=== PATIENT | female | born 1970 | race Caucasian/White ===

== ENCOUNTER 2017-03-11 18:40 | Observation (INO) | payer MEDICAID ==
[~2017-03-11] VITALS: Ht 162.6 cm; Wt 133.2 kg
--- NOTE | ~2017-03-11 | HP ---
PATIENT'S NAME: EMILIA SOLO [facility] AGE: 47 Y [address] ROOM: [place] [address] LOCATION: GPCU ADMIT DATE: 03/11/2017 History & Physical DISCHARGE DATE: FAMILY PHYSICIAN: PHYSICIAN, UNKNOWN ATTENDING PHYSICIAN: Lynda Mohamud DATE OF SERVICE: CHIEF COMPLAINT: Chest pain. HISTORY OF PRESENT ILLNESS: The patient is a 47-year-old female with past medical history most significant for long-standing insulin-dependent diabetes, morbid obesity, and hypertension. The patient was being evaluated at [place] in the course of the last 3-4 weeks for persistent chest pain. She has had a stress test, which was reported to me by the patient and significant other to have some sort of an "apical abnormality." She also had an echocardiogram which again as per the patient and accompanying significant other, demonstrated right-sided abnormality. The patient was scheduled for a cardiac catheterization in approximately 4 days, but continued to have chest pain and called Dr. Mohamud's office, who was supposed to do the catheterization on her. She was advised to go to the ER in [place]. A workup at [place] including cardiac enzymes and an EKG was unremarkable. A transfer to [facility] for further evaluation and cardiac catheterization was requested. At this point, the patient is resting comfortably in bed at [facility]. She still reports that she has this constant sharp left-sided chest pain associated with dyspnea. She does say that she feels better with supplemental oxygen though her saturations remained at 96%. She reports that she did not have any significant response to this chest pain with nitroglycerin. The chest at its worse gets to be a 6, but right now is less. She denies any nausea, vomiting, or syncope. REVIEW OF SYSTEMS: All systems have been reviewed and are negative aside from pertinent positives mentioned above. PAST MEDICAL HISTORY: 1. Depression./anxiety. 2. Insulin-dependent diabetes. 3. Morbid obesity. 4. Essential hypertension. PATIENT'S NAME: EMILIA SOLO [facility] AGE: 47 Y [address] ROOM: [place] [address] LOCATION: GPCU ADMIT DATE: 03/11/2017 History & Physical DISCHARGE DATE: FAMILY PHYSICIAN: PHYSICIAN, UNKNOWN ATTENDING PHYSICIAN: Lynda Mohamud 5. Diabetic neuropathy. 6. Has been tested for obstructive sleep apnea in the past, but does not carry the diagnosis. 7. Fatty liver. 8. Gastroparesis. 9. Spinal stenosis. 10. Chronic low back pain. 11. A "disorder of the thyroid.". FAMILY HISTORY: Significant for severe diabetes in her father and COPD in her mother. SOCIAL HISTORY: The patient denies any history of for ongoing toxic habits. CURRENT MEDICATIONS: 1. Trazodone. 2. Fluoxetine. 3. Meloxicam. 4. Omeprazole. 5. Losartan. 6. Levothyroxine. 7. Tramadol. 8. Lorazepam. 9. Seroquel. 10. Metoprolol 25 b.i.d. 11. Atorvastatin 20. 12. Invokana. 13. Metformin. 14. Aspirin. 15. Fluconazole. 16. Pregabalin. 17. Ibuprofen. 18. Nystatin. 19. Diclofenac. 20. Insulin detemir 40 units q.h.s. 21. NovoLog sliding scale. PHYSICAL EXAMINATION: VITAL SIGNS: Blood pressure 127/78, heart rate is in the 80s, respirations are 16, saturating 96% on room air, afebrile. GENERAL APPEARANCE: Morbidly obese, middle-aged female, slightly diaphoretic, but no acute distress. NEUROLOGIC: Nonfocal. EYES: Exam shows pupils are equal and reactive to light. PATIENT'S NAME: EMILIA SOLO [facility] AGE: 47 Y [address] ROOM: [place] [address] [facility] ADMIT DATE: 03/11/2017 History & Physical DISCHARGE DATE: FAMILY PHYSICIAN: PHYSICIAN, UNKNOWN ATTENDING PHYSICIAN: Lynda Mohamud LYMPHATIC: Shows no cervical lymphadenopathy. ENDOCRINE: Shows no thyromegaly. LUNGS: Clear to auscultation in all acevedo. HEART: Rate is regular, and there is a 2/6 early systolic murmur. JVD cannot be assessed and there is no lower extremity edema. GASTROINTESTINAL: Abdomen is soft and nontender. : No costovertebral angle tenderness. VASCULAR: 2+ pedal pulses bilaterally. MUSCULOSKELETAL: No muscle or joint abnormalities. SKIN: Slightly diaphoretic around her face, but aside from that, warm. PSYCHIATRIC: Reveals slightly depressed mood, but appropriate cognition and affect. LABORATORY DATA: Review of studies from outside facility is essentially unremarkable. ASSESSMENT AND PLAN: This is a 47-year-old female, who will be admitted with: 1. Chest pain. Given the fact that the patient has undergone extensive testing and catheterization is planned, she will be admitted to the hospital. We will start her on heparin empirically. We will start her on full-dose aspirin and a high-dose statin. I will check her D-dimer and depending on the outcome of that, I will discuss the possibility of CT chest to rule out a PE versus a catheterization first and subsequent workup for PE. She will be on heparin regardless. 2. Insulin-dependent diabetes. We will continue the patient on her current diabetic regimen, but we will hold off on Invokana and metformin as she will be receiving contrast. 3. Essential hypertension. We will continue her on her current regimen. 4. Depression/anxiety. We will continue her on her current psychiatric regimen. 5. Additional management will depend on clinical course. Time dedicated to the patient encounter is 35 minutes. MD OFELIA CONTI/shikha /[id number] D: T: HISTORY & PHYSICAL
--- NOTE | ~2017-03-11 | CATH ---
Cardiac Diagnostic Report Demographics Patient Name GERMANIA Martínez Gender Female Date of 1970 Age 47 year(s) Patient Number [id number] Date of Study 03/12/2017 Visit Number [id number] Room Number [id number] [place] [id number] Ht 167.64 cm Wt 132.9 kg Referring Juan Honeycutt MD Primary Physician Physician Performing Efstratiou Secondary Physician Physician Lito Morales MD Diagnostic Efstratiou Assisting Physician Physician Lito Morales MD Interventional Physician Safety Specialist Physician Findings and Conclusions Diagnostic Findings and Conclusion Mild pulmonary HTN Normal cardiac output non-critical CAD Diagnostic Recommendations Medical treatment Weight loss Procedure Description The patient was brought to the diagnostic cardiac catheterization-EP laboratory in the fasting, non-sedated state. Informed consent was obtained in the written and verbal form after the risks and benefits were explained. The patient had no further questions and agreed to proceed. The planned puncture-incision site(s) were shaved and prepped with ChloraPrep and draped in the usual sterile manner. Conscious sedation, supplemental oxygen, and pain control medications were delivered by a registered nurse under physician guidance. Surface ECG rhythm, blood pressure measurement, and pulse oximetry were monitored throughout the procedure. Arterial access. The access site was infiltrated with lidocaine. The vessel was entered with the Seldinger technique. A sheath was advanced into the vessel and used for catheter placement. Venous access. The access site was infiltrated with 2% lidocaine. The vessel was entered with the Seldinger technique. A sheath was advanced into the vessel and used for catheter placement. Selective left coronary angiography. A catheter was advanced into the left coronary vessel ostium under Fluoroscopic guidance. Contrast was injected by hand. Images were obtained in multiple projections. Selective right coronary angiography. A catheter was advanced into the right coronary vessel ostium under fluoroscopic guidance. Contrast was injected by hand. Images were obtained in multiple projections. Left heart catheterization. A catheter was advanced across the aortic valve to the left ventricle under fluoroscopic guidance. Resting hemodynamics were obtained. Right heart catheterization. A Reardan Ashley catheter was successfully advanced to the right atrium, right ventricle, pulmonary artery, and pulmonary artery wedge position under fluoroscopic guidance. Resting hemodynamics were obtained. Measurements included pressures, arterial and venous oxygen saturation samples, and cardiac output. The Reardan was removed without difficulty. Arterial and Venous hemostasis was achieved. The patient was transferred to a regular nursing floor via cart accompanied by a nurse. The patient left the laboratory in stable condition. Diagnostic Cath Status: Urgent Procedure Procedure Type Diagnostic procedure:Angiography:, Right and Left Heart Cath, Coronary Angios Indications: Shortness of breath, Abnormal Stress Test and Chest pain. The procedure was explained in detail to the patient. Risks, complications and alternative treatments were reviewed. Written consent was obtained. Medications Reviewed with Patient prior to Procedure. Complications: No Complication. Angiographic Findings Dominance: Mixed Cardiac Arteries and Lesion Findings LAD: Single stenosis. Lesion on Mid LAD: Proximal subsection.20% stenosis 10 mm length . LCx: Multiple stenosis. Lesion on 1st Ob Nikia: Ostial.30% stenosis 5 mm length . Lesion on Dist CX: Mid subsection.20% stenosis 15 mm length . RCA: Single stenosis. Lesion on Mid RCA: Mid subsection.10% stenosis 20 mm length . Coronary Tree Procedure Data Procedure Date Date: 03/12/2017Start: 12:43 PMEnd: 01:29 PM Entry Locations - Retrograde Percutaneous access was performed through the Right Radial artery (Primary location). A 6 Fr sheath was inserted. Hemostasis was successfully obtained using an R band. Closure Comments: by MK, 10 ml. - Percutaneous access was performed through the Right Femoral vein. A 6 Fr sheath was inserted. Hemostasis was successfully obtained using Manual Compression. Closure Comments: by CC. Procedure Medications Order and Administration + + +-------+-------+ !Time !Medication !Dosage !Route ! + + +-------+-------+ !03/12/2017 !Fentanyl !50 mcg !I.V. ! !12:40 PM ! ! ! ! + + +-------+-------+ !03/12/2017 !Versed !1 mg !I.V. ! !12:44 PM ! ! ! ! + + +-------+-------+ !03/12/2017 !PAE Radial Cocktail: Heparin 5000 units, ! !I.A. ! !12:45 PM !Nitroglycerin 200mcg, Verapamil 3 mg ! ! ! ! !(ACC_3) ! ! ! + + +-------+-------+ !03/12/2017 !Oxygen !2 l/min!NC ! !12:47 PM ! ! ! ! + + +-------+-------+ Devices Used - A6 Fr. BS JR 4 Diag. Catheterwas used for:Right coronary angiography. - A6 Fr. BS JL 3.5 Diag. Catheterwas used for:Left coronary angiography. - A6 Fr. BS Angled Pigtail Diag. Catheterwas used for:LV Pressures. - A6 Fr. Balloon Wedge Catheterwas used for:Right heart cath. Contrast Material - Isovue 01358 ml Fluoroscopy Time: Diagnostic: 4:54 minutes. Total: 4:54 minutes. Fluoroscopy Dose: Diagnostic: 631 mGy. Total: 631 mGy. Estimated Blood Loss: 15 ml. Medical History Performed Procedures and Imaging Results - Standard exercise stress testwas performed. Results were: Indeterminant. Allergies - No known allergies. Risk Factors The patient risk factors include:hypercholesterolemia, hypertension, insulin-treated diabetes mellitus, last creatinine: 0.6 mg/dl, creatinine clearance: 240.58 ml/min and dyslipidemia. Admission Data Admission Date: 03/11/2017 Admission Time: 08:19 PM Admit Source: Transfer [facility] facility Insurance Payors: Private health insurance. Admission Medications + +------+------+ + + + + !Medication !Dosage!Times !Last !Last !Administered !Comments ! ! ! !Per !Delivery !Delivery ! ! ! ! ! !Day !Date !Time ! ! ! + +------+------+ + + + + !ARB (any) ! ! ! ! ! ! ! + +------+------+ + + + + !Aspirin ! ! ! ! ! ! ! !(any) ! ! ! ! ! ! ! + +------+------+ + + + + !Beta ! ! ! ! ! ! ! !Guille ! ! ! ! ! ! ! !(any) ! ! ! ! ! ! ! + +------+------+ + + + + !Statin ! ! ! ! ! ! ! !(any) ! ! ! ! ! ! ! + +------+------+ + + + + Clinical Evaluation Leading to Procedure - The patient's CAD presentation was assessed as: Unstable angina. - The patient's anginal syndrome during the past two weeks was assessed as: Class III according to the [place] Cardiovascular Society Classification System (CCS). Anti-anginal medications were prescribed during the past two weeks. The medication is: Beta Blockers. Snapshots Hemodynamics Condition: Rest O2 Consumption: Estimated: 225.82Heart Rate: 63 bpm Oxygen Saturation +--------+-----+----+ +---+ + !Location!pCO2 !pO2 !% Saturation !Hgb!O2 Content ! +--------+-----+----+ +---+ + !RA ! ! !72.4 !14 ! ! +--------+-----+----+ +---+ + !PA ! ! !72.6 !14 ! ! +--------+-----+----+ +---+ + !AO ! ! !96.4 !14 ! ! +--------+-----+----+ +---+ + Pressures (mmHg) +-----+ + !Site !Pressure ! +-----+ + !AO !95/59 (76) ! +-----+ + !LV !106/6 ,15 ! +-----+ + !LV !110/6 ,14 ! +-----+ + !AO !109/59 (80) ! +-----+ + !LV !106/4 ,11 ! +-----+ + !RA !6 (2) ! +-----+ + !RV !30/0 ,7 ! +-----+ + !PCW !04/16 (15) ! +-----+ + !PA !28/7 (17) ! +-----+ + Cardiac Output +------+ + + + !Method!CO (l/min) !CI (l/min/m2) !SV (ml) ! +------+ + + + !John !4.98 !2.1 !78.57 ! +------+ + + + Valve Gradients and Areas + +--------+--------+--------+---------+ + + !Valve !Peak !Mean !Area !Index !Flow !Source ! + +--------+--------+--------+---------+ + + !Aortic !0 !0 ! ! !502.52 !John ! + +--------+--------+--------+---------+ + + !Aortic !0 !0 ! ! ! ! ! + +--------+--------+--------+---------+ + + Shunts Oxygen Values O2 Capacity 190.4 O2 Consumption 225.82 Flows (l/min) Qs 4.94 Qe/Qp 0.99 Qp 4.98 Qp/Qs 1.01 Qe 4.94 Vascular Resistance (dynes x sec x cm-5) + +-----+-----+----+----+---------+-------+ !CO method !TSVR !SVR !TPVR!PVR !TPVR/TSVR!PVR/SVR! + +-----+-----+----+----+---------+-------+ !John !16.11!15.65!3.46!0.44!0.21 !0.03 ! + +-----+-----+----+----+---------+-------+ !Qp or Qs !16.24!15.78!3.46!0.44!0.21 !0.03 ! + +-----+-----+----+----+---------+-------+ Discharge Data Discharge Date: 03/12/2017 Hospital Status: Inpatient Signatures dtt: Lynda Mohamud dtd: 03/12/17 1243 Physician Self Edit
[2017-03-11] MEDS ORDERED: DESYREL100 MG PO (20:50)
[2017-03-11] MEDS ORDERED: PROZAC40 MG PO (20:51)
[2017-03-11] MEDS ORDERED: MOBIC15 MG PO (20:52)
[2017-03-11] MEDS ORDERED: OMEPRAZOLE40 MG PO (20:53)
[2017-03-11 20:54] LABS: BASOPHIL % 0.5 %; EOSINOPHIL % 0.7 %; HEMATOCRIT 40.8 % (33.0-46.0); IMMATURE GRANULOCYTE % 0.5 %; LYMPHOCYTE % 35.1 %; MCH 32.2 pg (27.0-34.0); MCHC 34.3 gm/dL (32.0-36.5); MCV 93.8 fl (83.0-98.0); MONOCYTE # 0.4 K/uL (0.0-1.0); MONOCYTE % 6.9 %; MPV 11.3 fl (9.4-12.4); NEUTROPHIL # (ANC) 3.2 K/uL (1.8-7.8); NEUTROPHIL % 56.3 %; NRBC % 0 /100WBC (0-0.00); PLATELET COUNT 176 K/uL (150-450); RBC 4.35 M/uL (3.50-5.50); RDW-CV 12.1 % (11.9-14.6); WBC 5.7 K/uL (4.0-11.0)
[2017-03-11] MEDS ORDERED: COZAAR25 MG PO (20:54)
[2017-03-11] MEDS ORDERED: LEVOTHROID (SY50 MCG PO (20:55)
[2017-03-11] MEDS ORDERED: ATIVAN 0.5MG0.5 MG PO ×2 (20:56→20:57)
[2017-03-11] MEDS ORDERED: ULTRAM50 MG PO (20:56)
[2017-03-11] MEDS ORDERED: SEROQUEL XR300 MG PO (20:58)
[2017-03-11] MEDS ORDERED: SEROQUEL50 MG PO (21:02)
[2017-03-11] MEDS ORDERED: SEROQUEL25 MG PO (21:03)
[2017-03-11] MEDS ORDERED: LOPRESSOR25 MG PO (21:04)
[2017-03-11] MEDS ORDERED: LIPITOR20 M1 PO (21:05)
[2017-03-11 21:06] LABS: INR - (THERAPEUTIC) 0.97 (0.92-1.07); PROTIME 10.2 SECONDS (9.8-11.4); PTT 27 SECONDS (25-32)
[2017-03-11] MEDS ORDERED: INVOKANA300 MG PO (21:06)
[2017-03-11] MEDS ORDERED: GLUCOPHAGE500 MG PO (21:08)
[2017-03-11] MEDS ORDERED: ASPIRIN LO-DOSE81 MG PO (21:09)
[2017-03-11] MEDS ORDERED: DIFLUCAN150 MG PO (21:10)
[2017-03-11] MEDS ORDERED: LYRICA 100MG C100 MG PO ×2 (21:12)
[2017-03-11] MEDS ORDERED: ADVIL200 MG PO (21:13)
[2017-03-11 21:14] LABS: ALK PHOS 103 IU/L (33-138); ALT 33 IU/L (12-78); ANION GAP 9.9 (10.0-19.0); AST 23 IU/L (10-40); BLOOD UREA NITROGEN 12 mg/dL (6-24); CALCIUM 8.2 mg/dL (8.5-10.5); CHLORIDE 103 mMol/L (96-110); CO2 29 mMol/L (22-32); CPK 63 IU/L (21-215); CREATININE 0.6 mg/dL (0.5-1.1); ESTIMATED GFR (MDRD EQUATION) > 60; MAGNESIUM 1.8 mg/dL (1.8-2.6); POTASSIUM 3.9 mMol/L (3.7-5.1); SODIUM 138 mMol/L (135-145); TOTAL BILIRUBIN 0.4 mg/dL (0.0-1.5); TOTAL PROTEIN 6.5 g/dL (6.0-8.4)
[2017-03-11] MEDS ORDERED: MYCOSTATIN CREA30 GM TOP (21:15)
[2017-03-11] MEDS ORDERED: VOLTAREN 1% GE100 GM TOP (21:17)
[2017-03-11] MEDS ORDERED: LEVEMIR FL100 UNIT/1 SUB-Q (21:19)
[2017-03-11] MEDS ORDERED: NOVOLOG100 UNIT/M SUB-Q (21:21)
--- NOTE | 2017-03-12 02:14 | NUR ---
PATIENT IS A 47 YEAR OLD FEMALE THAT WAS ADMITTED AROUND 2021 VIA EMS FROM [facility]. HELENA WAS BROUGHT HERE FOR CHEST PAIN. PATIENT SAW DR. Hale WEDNESDAY IN THE CLINIC FOR WORSENING SOB AND A FOLLOW UP WITH A FAILED STRESS TEST 2 WEEKS AGO. ECHO WAS DONE IN THE CLINIC. PATIENT WAS ALSO HAVING CHEST PAIN IN THE MIDDLE OF THE CHEST AND GOES TO THE L) ARM. PATIENT DESCRIBES THE PAIN A QUICK SHARP PAIN THAT COMES AND GOES. ALSO ASSOCAITED SYMPTOMS OF DIAPHORESIS AND NAUSEA. PATIENT STATES THE PAIN HAS GOTTEN WORSE TODAY. NITRO WAS GIVEN X1 EN ROUTE TO THE HOSPITAL AND BROUGHT THE PAIN FROM A 5/10 TO A 4/10. ALSO A DOSE OF ZOFRAN WAS GIVEN EN ROUTE FOR C/O OF NAUSEA. PATIENT WAS ABLE TO FIND RELIEF AND NO C/O SINCE. A/OX3. SBA FROM BED TO CART. PATIENT HAD SOME C/O OF DIZZINESS UPON STANDING. AFEBRILE. VITALS WERE FOLLOWED: TEMP 99.2 HR 90 SR 96% ON RA. PUT 2L OF 02 ON PATIENT PER [facility] PROTOCOL. PRESSURE 153/80. HAVING 5/10 PAIN. DOCTOR UP TO SEE PATIENT AND WRITE ORDERS.
--- NOTE | 2017-03-12 05:00 | NUR ---
Significant Event: A/0X3. RESTED IN BED ALL OF SHIFT. TURNS SELF. IN ROOM WITH PATIENT. AFEBRILE. VSS ON 2L. PUT PATIENT ON 2L PER [facility] PROTOCOL. BEEN NPO SINCE MIDNIGHT FOR A POSSIBLE HEART CATH THIS AM.PREP IS DONE. IV TO L) WRIST WITH HEPARIN RUNNING AT 1100 UNITS/H NEXT PTTHP. IS AT 11 AM AND ALSO NS @ 50 ML/H. IV TO R) FA SL. PATIENT COMPLAINS OF QUICK SHARP PAIN IN THE MIDDLE OF CHEST THAT GOES DOWN L) ARM. IT COMES AND GOES. ENZYMES WERE NEGATIVE. VOIDS FINE.NO BM THIS SHIFT. NO C/O OF N/V THIS SHIFT. ULTRAM GIVEN AT 2345. PATIENT WAS ABLE TO FIND SOME RELIEF AND REST OFF AND ON THROUGHOUT THE NIGHT. Follow up: CONTINUE WITH PLAN OF CARE. HEART CATH THIS AM.
--- NOTE | 2017-03-12 10:39 | NUR ---
Diabetes center note: 1000 Patient is sleeping at the time CDE entered the room, visited with spouse who is at bedside. CDE explained A1C of 8.2 %, spouse reports that this is up from past A1C of 7 %. Patient is scheduled for heart cath at 1100 today, Diabetes Management Booklet and Survival Skills Assessment form is provided to spouse and encouraged to complete sometime today, when patient is awake. Spouse denies questions at this time. Medication for diabetes at home include Metformin 500 mg TID with meals, Levemir 40 units daily and Novolog 18 units with meals. Explain importance of proper control of blood sugars to reduce risks of complications related to diabetes, heart, eyes, kidneys, nerves. Will continue to follow.
[2017-03-12] MEDS ORDERED: NOVOLOG100 UNIT/M SUB-Q (12:36)
--- NOTE | 2017-03-12 15:31 | NUR ---
Diabetes Center note: 1530 Assisted patient and spouse complete the Diabetes Assessment form and answered questions. Patient states that her main concern is that she needs to lose weight. Offered Diabetes Center Dietitian for on-going education and provided phone number, they do live in [facility], so patient states she may look into seeing if there is someone closer to home to review carb counting and weight loss. Both are aware of A1C of 8.2 % and need to obtain better control of blood sugars, has supplies that she needs at home to take insulin and check blood sugars. Needs to schedule a dentist appointment as she states she has some broken teeth, encouraged to do this soon. Survival skills checklist is placed on the chart and patient has the Diabetes Management booklet. Patient states she knows what to do, she states "...I just need to do it!"
--- NOTE | 2017-03-12 16:10 | NUR ---
D:Patient left for laboratory scientist at 1205. Was up to bathroom prior to going to laboratory scientist. No c/o chest pain.NS at 100 ml/hr. Heparin at 1200 units/hr. At 1330, returned to room with NS infusing at 100 ml/hr and Heparin at 1200 units/hr. Dressing to right groin- venous- is soft, and dry. Right wrist has R band over arterial stick. Is soft, not bleeding or swallowing noted. Resting quietly in bed.
--- NOTE | 2017-03-12 16:31 | NUR ---
Significant Event:Patient had heart cath today. No intervention. NS at 100 ml/hr for 4 hours. R radial arterial stick- working on getting off. Has soft right groin stick- gauze/tegaderm- dry and intact, site is soft. No c/o chest pain. O2 is off. Follow up:Home tomorrow?
--- NOTE | 2017-03-12 21:29 | NUR ---
2036: PT DISMISSED TO HOME. INSTRUCTIONS GIVEN TO PATIENT AND . INSULIN RETURNED TO PT. UP WITH STANDBY ASSIST. GROIN AND RADIAL CATH SITES SOFT WITHOUT DRAINAGE AND BRUISING. WHEELED OUT TO FRONT DOOR BY NURSE.
== END 2017-03-12 20:39 | disposition disaster alternative care site (69) ==
LOC: GPCU 18:40
PROVIDERS: Internal Medicine; ADMIT Internal Medicine Cardiovascular Disease
DX: I25.110 Atherosclerotic heart disease of native coronary artery with unstable angina pectoris (principal); E66.01 Morbid (severe) obesity due to excess calories; I10 Essential (primary) hypertension; F41.8 Other specified anxiety disorders; G89.29 Other chronic pain; M54.5 Low back pain; E11.43 Type 2 diabetes mellitus with diabetic autonomic (poly)neuropathy; K31.84 Gastroparesis; F41.9 Anxiety disorder, unspecified; F32.9 Major depressive disorder, single episode, unspecified; Z79.4 Long term (current) use of insulin; Z79.82 Long term (current) use of aspirin; Z79.899 Other long term (current) drug therapy; Z68.43 Body mass index [BMI] 50.0-59.9, adult
CPT/HCPCS: C1894; G0378; J1644; J2250; J3010; J7030